=== PATIENT | male | born 1975 | race Hispanic/Latino ===

== ENCOUNTER 2018-09-13 05:46 | Emergency (ER) | payer BC | END 2018-09-13 07:40 | disposition home or self-care (01) | LOC: ERS 05:46 | DX: M54.5 Low back pain (principal); G89.29 Other chronic pain; E78.5 Hyperlipidemia, unspecified; I10 Essential (primary) hypertension; F41.9 Anxiety disorder, unspecified; Z79.899 Other long term (current) drug therapy | CPT/HCPCS: 96374 ==

== ENCOUNTER 2019-06-01 15:17 | Emergency (ER) | payer BC ==
[2019-06-01] MEDS ORDERED: Fluorescein Opthalmic Strip ONE ×2 (15:52→15:57)
[2019-06-01] MEDS ORDERED: Proparacaine 0.5% Opth 15 ML BOT ONE (15:53)
== END 2019-06-01 17:14 | disposition home or self-care (01) ==
LOC: ERS 15:17
DX: H16.002 Unspecified corneal ulcer, left eye (principal); E78.5 Hyperlipidemia, unspecified; E78.00 Pure hypercholesterolemia, unspecified; I10 Essential (primary) hypertension; F41.9 Anxiety disorder, unspecified; Z79.82 Long term (current) use of aspirin; Z79.899 Other long term (current) drug therapy
CPT/HCPCS: 99282

== ENCOUNTER 2019-06-21 19:05 | Emergency (ER) | payer BC | END 2019-06-21 20:30 | disposition home or self-care (01) | LOC: ERS 19:05 | DX: H10.13 Acute atopic conjunctivitis, bilateral (principal); E78.5 Hyperlipidemia, unspecified; I10 Essential (primary) hypertension; F41.9 Anxiety disorder, unspecified; Z79.82 Long term (current) use of aspirin; Z79.899 Other long term (current) drug therapy | CPT/HCPCS: 99283 ==

== ENCOUNTER 2019-11-05 10:51 | Emergency (ER) | payer BC ==
[2019-11-05 11:56] LABS: #Basophils 0.1 thou/uL (0.0-0.2); #Eosinphils 0.2 thou/uL (0.0-0.7); #Lymphocytes 1.9 thou/uL (1.20-3.40); #Monocytes 0.3 thou/uL (0.11-0.59); #Neutrophils 3.7 thou/uL (1.40-6.50); %Basophils 1.5 % (0.0-1.0); %Eosinophils 3.7 % (0.0-10.0); %Lymphocytes 30.9 % (21.0-51.0); %Monocytes 5.3 % (0.0-10.0); %Neutrophils 58.6 % (42.0-75.0); Hemoglobin 16.4 g/dL (14.0-18.0); Mean Corpuscular HGB CONC 33.2 g/dL (32.0-36.0); Mean Corpuscular Hemoglobin 28.6 pg (27.0-31.0); Mean Corpuscular Volume 85.9 fL (78.0-98.0); Mean Platelet Volume 8.5 fL (7.4-10.4); Platelet Count 205 thou/uL (130-400); RBC Distribution Width 12.9 % (11.5-14.5); Red Blood Cell (RBC) Count 5.73 mill/uL (4.70-6.10); White Blood Cell (WBC) Count 6.3 thou/uL (4.8-10.8)
[2019-11-05 12:18] LABS: ALT (SGPT) 20 U/L (8-55); AST (SGOT) 16 U/L (5-34); Albumin 4.1 g/dL (3.5-5.0); Alkaline Phosphatase 78 U/L (40-110); Anion Gap 10 mmol/L (10-20); BUN (Urea Nitrogen) 10 mg/dL (8.9-20.6); Bilirubin, Total 0.9 mg/dL (0.2-1.2); Calc. Creatinine Clearance 0 mL/min (70-130); Calcium 8.9 mg/dL (7.8-10.44); Carbon Dioxide 26 mmol/L (22-29); Chloride 105 mmol/L (98-107); Estimated GFR-MDRD Greater than 90; Globulin 3.1 g/dL (2.4-3.5); Glucose 101 mg/dL (70-105); Protein, Total 7.2 g/dL (6.0-8.3); Sodium 137 mmol/L (136-145)
--- NOTE | 2019-11-05 12:51 | RAD ---
PORTABLE CHEST 1 VIEW: DATE: 11/05/2019. TIME: 11:32 AM. HISTORY: Dizziness. COMPARISON: 08/31/2016. FINDINGS: There are changes of median sternotomy. The heart size is enlarged. No lobar consolidation, pneumot horaces, aurelio pulmonary edema, or pleural effusions are seen. IMPRESSION: No acute process. POS: OFF
--- NOTE | 2019-11-08 14:14 | EKG ---
Test Reason : Blood Pressure : / mmHG Vent. Rate : 065 BPM Atrial Rate : 065 BPM P-R Int : 186 ms QRS Dur : 116 ms QT Int : 356 ms P-R-T Axes : 056 -45 014 degrees QTc Int : 370 ms Normal sinus rhythm Left axis deviation Septal infarct , age undetermined Abnormal ECG Confirmed by MARCIA HOLT, HORACE ([id number]), publication editor AXEL MILTON ([id number]) on 11/08/2019 2:13:52 PM Referred By: Confirmed By:HORACE KENNEDY MD
== END 2019-11-05 14:05 | disposition home or self-care (01) ==
LOC: ERS 10:51
DX: R42 Dizziness and giddiness (principal); E78.00 Pure hypercholesterolemia, unspecified; E78.5 Hyperlipidemia, unspecified; I10 Essential (primary) hypertension; Z95.1 Presence of aortocoronary bypass graft; Z79.82 Long term (current) use of aspirin; Z79.899 Other long term (current) drug therapy
CPT/HCPCS: 36415; 71045; 80053; 84484; 85025; 85379; 93005

== ENCOUNTER 2019-11-15 07:34 | Outpatient (CLI) | payer BC ==
--- NOTE | 2019-11-15 10:04 | MRI ---
LUMBAR SPINE MRI WITHOUT IV CONTRAST: Date: 11/15/2019 HISTORY: Lumbar radicular pain, low back pain, left leg pain. COMPARISON: 08/31/2011. FINDINGS: There generalized disc desiccation changes and ligament and facet hypertrophic changes. Conus medulla ris region appears unremarkable. No significant acute abnormal marrow edema. T12-L1: Unremarkable. L1-L2: Unremarkable. L2-L3: Unremarkable. L3-L4: Mild lateral recess stenosis. L4-L5: Diffuse disc bulging with moderate to severe central canal and lateral recess and bilateral f oraminal stenosis. L5-S1: Mild to moderate bilateral foraminal stenosis. IMPRESSION: Central canal, lateral recess, and foraminal stenosis, most marked at L4-L5. POS: OFF
== END 2019-11-15 07:35 | disposition home or self-care (01) ==
LOC: TBSIIMAG 07:34
PROVIDERS: ATTEND Family Medicine
DX: M51.16 Intervertebral disc disorders with radiculopathy, lumbar region (principal); R20.0 Anesthesia of skin; M48.061 Spinal stenosis, lumbar region without neurogenic claudication
CPT/HCPCS: 72148

== ENCOUNTER 2021-03-05 10:32 | Emergency (ER) | payer BC ==
[2021-03-05 18:10] LABS: SARS-CoV-2 PCR by NAA Not Detected (NotDetected)
== END 2021-03-05 12:21 | disposition home or self-care (01) ==
LOC: ERS 10:32
DX: H66.91 Otitis media, unspecified, right ear (principal); Z20.822 Contact with and (suspected) exposure to COVID-19; I10 Essential (primary) hypertension; E78.5 Hyperlipidemia, unspecified; E78.00 Pure hypercholesterolemia, unspecified
CPT/HCPCS: 99283; U0003; U0005

== ENCOUNTER 2021-03-09 12:32 | Emergency (ER) | payer BC ==
[2021-03-09] MEDS ORDERED: Ketorolac Tromethamine 30 MG/ML VIAL ONE (14:04)
== END 2021-03-09 14:25 | disposition home or self-care (01) ==
LOC: ERS 12:32
DX: M54.50 Low back pain, unspecified (principal); E78.5 Hyperlipidemia, unspecified; E78.00 Pure hypercholesterolemia, unspecified; I10 Essential (primary) hypertension; Z79.82 Long term (current) use of aspirin; Z79.899 Other long term (current) drug therapy
CPT/HCPCS: 96372; 99283; J1885

== ENCOUNTER 2023-09-28 22:50 | Emergency (ER) | payer BC, OTHER ==
[2023-09-29] MEDS ORDERED: Boostrix 0.5 ML (Tdap) VIAL (>/=7 yrs of age) ONE (00:02)
[2023-09-29] MEDS ORDERED: Lidocaine 1% w/Epinephrine 1:100K 20 ML VIAL ONE (00:02)
[2023-09-29] MEDS ORDERED: Bacitracin 1 PK ONE ×2 (00:45→00:49)
== END 2023-09-29 00:51 | disposition home or self-care (01) ==
LOC: ERS 22:50
DX: S41.112A Laceration without foreign body of left upper arm, initial encounter (principal); S61.412A Laceration without foreign body of left hand, initial encounter; I10 Essential (primary) hypertension; E78.00 Pure hypercholesterolemia, unspecified; W01.0XXA Fall on same level from slipping, tripping and stumbling without subsequent striking against object, initial encounter; Z23 Encounter for immunization; Z79.82 Long term (current) use of aspirin; Z79.899 Other long term (current) drug therapy
CPT/HCPCS: 12001; 90471; 90715